=== PATIENT | female | born 2005 | race Caucasian/White ===

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

== ENCOUNTER 2025-05-13 12:55 | Emergency (ER) | payer OTHER, SELFPAY ==
--- NOTE | 2025-05-13 13:01 | ED_ITS ---
HPI - Abdominal Pain General Chief Complaint: Urogenital-Female Stated Complaint: abdo pain Time Seen by Provider: 05/13/25 13:10 Source: patient, RN notes reviewed and old records reviewed Mode of arrival: ambulatory Limitations: no limitations History of Present Illness HPI narrative: 20 year old female with a history of ovarian torsion, surgery x3 presents to the [facility] with frequency urgency burning as well as right lower abdominal pain for 5-7 days. Denies fevers. Denies nausea or vomiting. Onset (ago): day(s) (5-7) Related Data Home Medications ?Medication ?Instructions ?Recorded ?Confirmed ?Last Taken ?Type No Home Medications 02/11/20 05/13/25 U nknown History Allergies Allergy/AdvReac Type Severity Reaction Status Date / Time No Known Allergies Allergy Verified 05/13/25 13:06 Review of Systems Review of Systems: All systems reviewed & are unremarkable except as noted in HPI and below Constitutional: Constitutional: Reports no additional constitutional complaints Respiratory: Respiratory: Reports no additional respiratory complaints, Denies chest congestion, Denies cough and Denies dyspnea Gastrointestinal: Gastrointestinal: Reports as per HPI, Reports abdominal pain, Denies nausea and Denies vomiting Genitourinary: Genitourinary: Reports as per HPI Musculoskeletal: Musculoskeletal: Reports no additional musculoskeletal complaints Integumentary/Breasts: Skin/Breast: Reports system reviewed and no additional complaints, except as docu PMFSH Past Medical History Medical History Urinary reflux report surgery for ureter transplant Ovary, torsion reports 3 surgery for ovarian torsion Anxiety with depression UTI (urinary tract infection) Family History Family History Mother Kidney stones Social History Social History Smoking status: Never smoker Alcohol intake: never Substance use type: does not use Living arrangements: with family Occupation/Education: student Gender identity (if verbalized by the patient): Female Comments At the time of my signature, I reviewed and agree with the nursing past medical, surgical, social, and family history. There is no relevant family history pertinent to the patient complaint. Exam Const: General: cooperative, healthy appearing, comfortable, no acute distress, well developed, alert and well nourished Nutritional Appearance: well nourished Orientation/consciousness: patient oriented x3 Limitations: no limitations HENMT: Head: normal to inspection Mouth: Yes Normal oral and palatal mucosa present, Yes lip normal, Yes tongue normal and Yes moist mucous membranes Eyes: General: appearance normal, both eyes and all related structures Alignment and Position: alignment normal Neck: Neck: normal visual inspection, full ROM, no lymphadenopathy and no meningeal signs Chest: Chest palpation & inspection: normal inspection of the chest Resp: Effort & Inspection: normal respiratory effort and able to speak in complete sentences Auscultation: clear to auscultation bilaterally, no crackles, no rales, no rhonchi and no wheezes Cardio: Rate: regular rate GI: GI Palp: Yes abdominal tenderness, Yes Tenderness to palpation present (GI) and Yes Rebound tenderness present ( Right lower quadrant) Auscultation: normal bowel sounds Skin: General skin exam: normal color and no rashes or lesions noted Neuro: General: patient oriented x3, gait normal, moves all extremities and no meningeal signs Cognition (Neuro): normal cognition Speech: normal speech Gait exam (Neuro): Normal gait present Extrem: General: normal to inspection, full ROM, capillary refill normal and normal gait Psych: Appearance: grossly normal and well kempt Mental Status: mental status grossly normal Speech and movement: Normal speech and movement present and Clear speech present Affect: normal affect Attitude: cooperative Course Course Level of Care: Express Care Visit Vital Signs Vital signs: Vital Signs Temperature 98.7 F 05/13/25 13:03 Pulse Rate 107 H 05/13/25 13:03 Respiratory Rate 16 05/13/25 13:03 Blood Pressure 138/90 05/13/25 13:03 Pulse Oximetry 100 05/13/25 13:03 Oxygen Delivery Room Air 05/13/25 13:03 Temperature 98.7 F 05/13/25 13:03 Pulse Rate 107 H 05/13/25 13:03 Respiratory Rate 16 05/13/25 13:03 Blood Pressure 138/90 05/13/25 13:03 Pulse Oximetry 100 05/13/25 13:03 Oxygen Delivery Room Air 05/13/25 13:03 reviewed Transfer Transfered to: [facility] Transportation: Other ( POV) Transfer rationale: patient with a history of ovarian torsion, abdominal surgeries still has her appendix presents with right lower quadrant pain. Rebound tenderness. Sending for higher level of care Accepting physician: erickson woke with Prosper RN, Dr. Vazquez [facility] Narrative Medical decision making narrative: patient with increasing right lower quadrant pain. History of ovarian torsion. Still has appendix sending For higher level of care to rule out appy, ovarian torsion. patient with negative test urine did show UTI, will not culture due to sending to the ER for further evaluation due to concerns for appendicitis. transfer instructions reviewed with patient to go directly to the ER. All questions have been answered, and the patient deny any further questions Some parts of this dictation were generated by voice recognition software and may contain typographical and/or grammatical inaccuracies. Differential Diagnosis Differential Diagnosis: Differential diagnostic considerations for acute abdominal pain?include surgical abdominal etiology, ischemic bowel, inflammatory bowel disease, gastritis, PUD, gastroenteritis, cardiac etiology, appendicitis, diverticulitis, bowel obstruction, kidney stone, pyelonephritis, abdominal aortic aneurysm, pancreatitis, constipation, endometriosis. Lab Data [facility] Lab Attestation statement: I personally reviewed the patient's lab results. Labs: Lab Results 05/13/25 Range/Units 13:10 POC Urine Color Yellow POC Urine Clarity Cloudy POC Urine pH 6.5 POC Ur Specif [place] 1.030 POC Urine Protein 1+ (Negative) POC Ur Glucose (UA) Negative (Negative) POC Urine Ketones Negative (Negative) POC Urine Blood 2+ (Negative) POC Urine Nitrite Negative (Negative) POC Urine Bilirubin Negative (Negative) POC Urine Urobilinogen 1.0 POC U Leukocyte Esteras 3+ (Negative) POC Urine HCG, Qual Negative (Negative) Reviewed Discharge Plan Discharge Clinical Impression: Acute right lower quadrant pain Patient Disposition: Acute Care Hospital Condition: Stable Patient Language: Macedonian Prescriptions: No Action No Home Medications Follow-up/Referrals: Yariel,Verónica Pinto MD [Primary Care Provider, Unknown]
[2025-05-13 13:03] VITALS: BP 138/90; PULSE 107; RESP 16; TEMP 37.1; O2SAT 100
--- OUTSIDE RECORDS SUMMARY | 2025-05-13 13:11 | XMS_ITS | Clinical Summary ---
Author Organization [facility] Address [address] [place] [address] Phone Care Team Providers Care Sales And Events Coordinator Name Role Phone Verónica Saldivar MD Primary Care Provider [phone] Allergies No known active allergies Medications nitrofurantoin, macrocrystal-mo nohydrate, (MACROBID) 100 MG Capsule Take 100 mg by mouth in the morning and at bedtime. 06/22/2022 Active Social History Tobacco Use Types Packs/Day Years Used Date Smoking Tobacco: Never Smokeless Tobacco: Never Tobacco Cessation:Counseling Given: Not Answered Alcohol Use Standard Drinks/Week Comments Never 0 (1 standard drink = 0.6 oz pur e alcohol) Comments No Sex and Gender Information Value Date Recorded Sex Assigned at Not on file Legal Sex Female 11:12 PM CDT Gender Identity Not on file Sexual Orientation Not on file Last Filed Vital Signs Vital Sign Reading Time Taken Comments Blood Pressure 125/81 06/24/2022 4:30 PM [employer]ING [employer] Pulse 80 06/24/2022 4:30 PM [employer]ING EQU[employer]MENT MECH[employer]IC Temperature 36.7 C (98.1 F) 06/24/2022 12:28 PM [employer] CONDITIONING EQUIPMENT MECH[employer]IC Respiratory Rate 20 06/24/2022 4:30 PM AIR CONDITIONING EQUIPMENT MECH[employer]IC Oxygen Saturation 100% 06/24/2022 4:30 PM AIR CONDITION[employer] EQUIPMENT MECH[employer]IC Inhaled Oxygen Concentration - - Weight 53.5 kg (118 lb) 06/24/2022 12:28 PM [employer] EQUIPMENT MECH[employer]IC Height 160 cm (5' 3) 06/24/2022 12:28 PM [employer]QUIPMENT MECH[employer]IC Body Mass Index 20.9 06/24/2022 12:28 PM [employer]QU[employer]MENT MECH[employer]IC Plan of Treatment Health Maintenance Due Date Last Done Comments Hepatitis C Virus (HCV) Screening 2004 Meningococcal B Immunization (1 of 2 - Standard) 2020 Influenza Immunization (#1) 2025 03/24/2015 SARS-COV-2 Immunization (1 - 2024- season) 2025 Respiratory Syncytial Virus (RSV) Immunization (Adult) (1 - 1-dose 75+ series) 2079 Hepatitis B Immunization Completed 005, 2004, 2004 Pneumococcal Immunization Combined Aged Out 07/25/2005, 2004, 2004, Additional history exists No longer eligible based on patient's age to complete this topic Hepatitis A Immunization Discontinued 01/26/2009, 06/15 Measles Mumps Rubella (MMR) Immunization Discontinued 12/14/2009, 05/02/2005 Polio (IPV) Immunization Discontinued 010, 2004, 2004, Additional history exists Varicella Immunization Completed 12/14/2009, 2004 DTaP/Tdap/Td Immunization Discontinued 2015, 12/14/2009, 07/25/2005, Additional history exists TdaP Immunization Completed 11/12/2015 Human Papillomavirus (HPV) Immunization Completed 06/27/2016, 11/12/2015 Meningococcal Immunization (ACWY) Completed 12/01/2020, 11/12/2015 Rotavirus Immunization Aged Out No lo nger eligible based on patient's age to complete this topic Insurance MEDICAID [facility] MEDICAID [employer] Care Teams Sales And Events Coordinator Relationship Specialty Start Date End Date Verónica Saldivar MD [address] [place] [address] DR JACK [address] [place] [id number] PCP - General Pediatrics 03/11/22
--- OUTSIDE RECORDS SUMMARY | 2025-05-13 13:11 | XMS_ITS | Clinical Summary ---
Author Organization [facility] Address [address] [place] [address] Care Team Providers Care Pipe Turner Name Role Phone Verónica Saldivar MD Primary Care Provider + Ruby Best PT Unavailable Unavaila ble Allergies No known active allergies Medications ascorbic acid (vitamin C) 100 mg tablet Take 1 tablet (100 mg total) by mouth daily Active calcium carbonate-vitamin D3 1,500 mg (600 mg elemental)-1,000 unit capsule Take 1,000 Units by mouth daily Active norelgestromin-eth in.estradioL (ORTHO EVRA) 150-35 mcg/24 hrIndications:Preg mitesh Contraception Apply 1 patch each week for 12 weeks, then remove for 1 week. 12 patch 3 5 10/24/19 26 Active Active Problems Problem Noted Date Diagnosed Date Scar 10/07/2022 Abdominal pain 08/02/2022 Assessment & Plan (08/02/2022 12:26 PM CDT): Pain since 12/2021 with no inciting events Became worse 06/19/2022 LLQ, constant, no radiation, exertion and lying on the right side makes pain worse Occasional eating onions and certain seeds/grains would make pain worse one time after having 6 BMs pain improved Otherwise no association with eating or BM generally Has 1-2 BMs every 3 days with no urge to go in between Takes fiber and probiotics daily Naproxen was recently started with no relief No heartburn reflux dysphagia,weight loss, appetite change or early satiety Has extensive family history of diverticulitis Labs from 06/2022 with normal lipase, CMP, normocytic anemia with hemoglobin 10.7 stable from 02/2022 but decreased since 03/2021 from 13, mild leukocytosis of 10.9. Normal CRP, mildly elevated ESR of 17 and normal celiac panel from 02/2022, normal TSH 03/[address] A/P and KUB 2016, normal pelvic US 06/2022 Plan Given family history, location of the pain, anemia and mild leukocytosis we will order CT A/P to rule out diverticulitis and other colitis Other ddx include musculoskeletal, constipation, functional pain Stop naproxen Use tylenol, topical lidocaine and heating pad for pain control Normocytic anemia 08/02/2022 Assessment & Plan (08/02/2022 12:21 PM CDT): Likely related to heavy menstrual flow. No signs of GI bleeding. We will check iron studies, folate and B12, repeat TSH Macromastia 01/07/2022 Breast asymmetry 01/07/2022 Encounter for postoperative care 03/16/2015 Torsion of right ovary 03/16/2015 Immunizations Immunization Administration Dates Next Due DTaP 07/25/2005, 5,2004,06/24 DTaP / IPV 12/14/2009 HPV9 06/27/2016,11/12/2015 Hep A, Ped Unspecified 01/26/2009,06/27/2007 Hep A, Pediatric 01/26/2009,06/27/2007 Hep B, Adolescent or Pediatric 2004,2004,2004 HiB 07/25/2005, 5,2004,06/24 IPV 2004,2004,2004 Influenza LAIV (Nasal) 03/24/2015 Influenza, Live, Intranasal, Quadrivalent 03/24/2015 Influenza, Split 02/25/2009,01/26/2009 Influenza, Unspecified 02/25/2009,01/26/2009 MMR 05/02/2005 MMRV 12/14/2009 Meningococcal Conjugate (Menveo) 12/01/2020,10/15 Pneumococcal Conjugate 7-Valent 07/26/19 06,2004,2004,06/24 Tdap 11/12/2015 Varicella 05/02/2005 Surgical History Surgery Date Site/Laterality Comments OTHER SURGICAL HISTORY ovarian torsion OTHER SURGICAL HISTORY ureter transplant Family History Medical History Relation Name Comments Ovarian cysts Mother Breast cancer Other Relation Name Status Comments Father Alive Mother Alive Other Social History Tobacco Use Types Packs/Day Years Used Date Smoking Tobacco: Never Smokeless Tobacco: Never Tobacco Cessation:Counseling Given: Not Answered Alcohol Use Standard Drinks/Week Comments Never 0 (1 standard drink = 0.6 oz pur e alcohol) AUDIT-C Answer Date Recorded Q1: How often do you have a drink containing alc ohol? Never 08/02/2022 Average Number of Drinks Not on file 023 Frequency of Binge Drinking Not on file 07/14 Exercise Vital Sign Answer Date Recorde d On average, how many days pe r week do you engage in moderate to strenuous exercise (like a brisk walk)? 4 days 04/17/2020 On average, how many minutes do you engage in exercise at this level? 60 min 04/17/2020 Personal Safety Answer Date Recorded Have you ever been in or are you currently in a harmful physical or emotional relationship or is someone making you feel afraid or unsafe? Denies 08/03/2022 Comments No Sex and Gender Information Value Date Recorded Sex Assigned at Not on file Legal Sex Female 2:44 PM CDT Gender Identity Not on file Sexual Orientation Not on file Obstetrics History Para Term AB IAB SAB Ectopic Multiple Livin g Live Births 0 0 0 0 0 0 0 0 0 0 0 Last Filed Vital Signs Vital Sign Reading Time Taken Comments Blood Pressure 118/73 10/23/2024 3:43 PM CDT Pulse 98 10/23/2024 3:43 PM CDT Temperature 36.7 C (98.1 F) 08/04/2022 4:06 AM CDT Respiratory Rate 18 08/04/2022 4:06 AM CDT Oxygen Saturation 99% 10/25/2023 1:46 PM CDT Inhaled Oxygen Concentration - - Weight 53.4 kg (117 lb 12.8 oz) 10/23/2024 3:43 PM CDT Height 162.6 cm (5' 4) 10/23/2024 3:43 PM CDT Body Mass Index 20.22 10/23/2024 3:43 PM CDT Plan of Treatment Health Maintenance Due Date Last Done Comments Cervical Cancer Screening 2004 Depression Screening 2004 Hepatitis C Screening 2004 Meningococcal B Vaccine (1 o f 2 - Standard) 2020 Influenza Vaccine (#1) 2025 5, 03/24/2015, 02/25/2009, Additional history exists Chlamydia and Gonorrhea (GC/ CT) Screening 10/23/2025 10/23/2024, 08/04/2022 Regular Well Visit/Exam 18-64 10/23/2025, 10/25/2023, 07/22/2022 DTaP/Tdap/Td Vaccine (7 - Td or Tdap) 11/11/2025 11/12/2015, 12/14/2009, 07/25/2005, Additional history exists Hepatitis B Screening Completed 2004 , 2004, 2004 Pneumococcal vaccine <65 Completed 006, 2004, 2004, Additional history exists Varicella Vaccines Completed 12/14/2009, 05/02/2005 HPV Vaccines Completed 06/27/2016, 11/12/2015 Meningococcal Vaccine Completed 12/01/2020, 016 Procedures Procedure Name Priority Date/Time Associated Diagnosis Comments N. GONORRHOEAE/C. TRACHOMATIS AMPLIFICATION Routine 10/23/2024 5:27 PM CDT Counseling for sexually transmitted disease from Last 3 Months or Most Recently Relevant to Health Maintenance Results * N. gonorrhoeae/C. trachomatis Amplification Vaginal (10/23/2024 5:27 PM CDT) C. trachomatis Not Detected [facility] N. gonorrhoeae Not Detected [facility] Comment: Interpretive Data This assay detects Chlamydia trachomatis and Neisseria gonorrhoeae by nucleic acid amplification testing (NAAT). This assay has been cleared by the [place] Food and Drug administration. The performance characteristics of this test have been verified by the [facility] Infectious Disease laboratory. The performance characteristics of this test have not been evaluated in individuals less than 14 years of age. Current Interpretive Data was last revised on 2023. Vaginal (None) 10/23/2024 5: 27 PM CDT 10/23/2024 5:30 PM CDT Melissa Yao MD LAB MICROBIOLOGY - GENERAL ORDERABLES Final Result [facility] Department [place] [address] [facility] from Last 3 Months or Most Recently Relevant to Health Maintenance Insurance [facility] OOS Care Teams Pipe Turner Relationship Specialty Start Date End Date Verónica Saldivar MD PCP - General 07/19/16 Ruby Best, PT Physical Therapist Physical Therapy 06/06/22
[2025-05-13 13:14] LABS: BEDSIDEPREGUCG Negative (Negative); EDUAAPPEAR Cloudy; EDUABILI Negative (Negative); EDUABLOOD 2+ (Negative); EDUACOLOR1 Yellow; EDUAGLUCOSE Negative (Negative); EDUAKETONE Negative (Negative); EDUALEUKO 3+ (Negative); EDUANITRATE Negative (Negative); EDUAPH 6.5; EDUAPROTEIN 1+ (Negative); EDUASPGRAVITY 1.030; EDUAUROBILI 1.0
== END 2025-05-13 13:36 | disposition short-term general hospital (02) ==
PROVIDERS: Emergency Provider Nurse Practitioner; PCP Pediatrics Pediatric Emergency Medicine
DX: R10.31 Right lower quadrant pain (principal); Z94.89 Other transplanted organ and tissue status
CPT/HCPCS: 81003; 81025; 99213; G0463